=== PATIENT | male | born 1985 | race Caucasian/White ===

== ENCOUNTER 2016-05-04 12:30 | Emergency (ER) | payer OTHER ==
[~2016-05-04] VITALS: Ht 170.2 cm; Wt 108.9 kg
[~2016-05-04 12:30] MED LIST: ALBUTEROL INHAL17 GM IH; ALBUTEROL2.5 MG/31 INH; AMOXICILLIN875 MG PO; BACTRIM DS TAB1 EACH PO; CILOXAN5 ML OP; CIPRO HC OTIC S10 ML OT; CORTISPORIN OTI10 M2 OT; DOXYCYCLINE 10100 MG PO; IBUPROFEN 600600 M1; IBUPROFEN 600600 M1 PO; IBUPROFEN 800800 MG PO; KEFLEX500 MG PO; MEDROL DOSPAK21 TAB PO; NOHOMEMEDICATIONS; NORCO 5-325 TA1 EACH PO; NYQUIL D COLD295 ML; PATANOL5 ML OPHTHALMIC; PHARBETOL500 M1 PO; PHENERGAN-CODE120 ML PO; PREDNISONE 20 M20 M1 PO; PREDNISONE 20 M20 MG PO; PROAIR HFA8.5 GM IH; PROVENTIL HFA6.7 G1 INH; TESSALON PERLE100 MG PO; VENTOLIN HFA 1818 GM INH; VICODIN 5-5001 EACH PO; ZPAK PO
[2016-05-04] MEDS ORDERED: CARAFATE 1 GM TA1 G1 PO (13:33)
[2016-05-04] MEDS ORDERED: ZANTAC 150MG T150 MG PO (13:33)
[2016-05-04] MEDS ORDERED: ALBUTEROL2.5 MG/0.5 INH (13:33)
[2016-05-04 13:50] VITALS: BP 135/94
== END 2016-05-04 14:01 | disposition home or self-care (01) ==
LOC: ER 12:30
DX: J02.9 Acute pharyngitis, unspecified (principal); K21.9 Gastro-esophageal reflux disease without esophagitis; J45.909 Unspecified asthma, uncomplicated; F17.210 Nicotine dependence, cigarettes, uncomplicated; F32.9 Major depressive disorder, single episode, unspecified; F41.9 Anxiety disorder, unspecified; Z88.0 Allergy status to penicillin; Z88.1 Allergy status to other antibiotic agents

== ENCOUNTER 2016-09-10 23:10 | Emergency (ER) | payer OTHER ==
[~2016-09-10] VITALS: Ht 172.7 cm; Wt 117.9 kg
[~2016-09-10 23:10] MED LIST changes: +ALBUTEROL2.5 MG/0.5 INH; +CARAFATE 1 GM TA1 G1 PO; +ZANTAC 150MG T150 MG PO
[2016-09-10 23:12] VITALS: BP 151/107
[2016-09-10] MEDS ORDERED: VITAMINC500 PO (23:33)
[2016-09-10] MEDS ORDERED: MULTI VITAMIN1 EACH (23:34)
[2016-09-10] MEDS ORDERED: FISH OIL 1,001000 M2 PO (23:34)
[2016-09-10] MEDS ORDERED: AUGMENTIN 875875 MG PO (23:48)
[2016-09-10] MEDS ORDERED: FAMCYCLOVIR 50500 M1 PO (23:48)
== END 2016-09-11 00:26 | disposition home or self-care (01) ==
LOC: ER 23:10
DX: J06.9 Acute upper respiratory infection, unspecified (principal); H66.91 Otitis media, unspecified, right ear; Z76.0 Encounter for issue of repeat prescription; J45.909 Unspecified asthma, uncomplicated; F41.9 Anxiety disorder, unspecified; F32.9 Major depressive disorder, single episode, unspecified; Z88.1 Allergy status to other antibiotic agents; Z88.0 Allergy status to penicillin; F17.210 Nicotine dependence, cigarettes, uncomplicated

== ENCOUNTER 2017-07-16 19:30 | Emergency (ER) | payer OTHER ==
[~2017-07-16] VITALS: Ht 172.7 cm; Wt 99.8 kg
[~2017-07-16 19:30] MED LIST changes: +AUGMENTIN 875875 MG PO; +FAMCYCLOVIR 50500 M1 PO; +FISH OIL 1,001000 M2 PO; +MULTI VITAMIN1 EACH; +VITAMINC500 PO
[2017-07-16] MEDS ORDERED: PREDNISONE 20 M20 MG PO (21:20)
[2017-07-16] MEDS ORDERED: TESSALON PERLE100 MG PO (21:20)
[2017-07-16] MEDS ORDERED: PROVENTIL HFA6.7 G1 INH (21:20)
== END 2017-07-16 21:47 | disposition home or self-care (01) ==
LOC: ER 19:30
DX: J45.901 Unspecified asthma with (acute) exacerbation (principal); J06.9 Acute upper respiratory infection, unspecified; F41.9 Anxiety disorder, unspecified; F32.9 Major depressive disorder, single episode, unspecified; F17.210 Nicotine dependence, cigarettes, uncomplicated; Z88.8 Allergy status to other drugs, medicaments and biological substances; Z88.0 Allergy status to penicillin

== ENCOUNTER 2017-12-27 21:22 | Emergency (ER) | payer OTHER ==
[~2017-12-27] VITALS: Ht 172.7 cm; Wt 108.9 kg
[2017-12-27] MEDS ORDERED: ULTRAM 50MG TAB50 MG PO (22:09)
[2017-12-27] MEDS ORDERED: AMOXICILLIN500 M1 PO (22:09)
[2017-12-27 22:44] VITALS: BP 168/100
== END 2017-12-27 22:45 | disposition home or self-care (01) ==
LOC: ER 21:22
DX: K02.9 Dental caries, unspecified (principal); F17.210 Nicotine dependence, cigarettes, uncomplicated; J45.909 Unspecified asthma, uncomplicated; F32.9 Major depressive disorder, single episode, unspecified; F41.9 Anxiety disorder, unspecified; Z88.1 Allergy status to other antibiotic agents; Z88.0 Allergy status to penicillin

== ENCOUNTER 2018-08-05 20:20 | Emergency (ER) | payer BC ==
[~2018-08-05] VITALS: Ht 172.7 cm; Wt 108.9 kg
[~2018-08-05 20:20] MED LIST changes: +AMOXICILLIN500 M1 PO; +ULTRAM 50MG TAB50 MG PO
[2018-08-05] MEDS ORDERED: ALBUTEROL2.5 MG/31 INH (20:53)
[2018-08-05] MEDS ORDERED: AZITHROMYCIN 2250 MG PO (20:53)
[2018-08-05] MEDS ORDERED: VENTOLIN HFA 1818 GM INH (20:53)
[2018-08-05 21:30] VITALS: BP 123/77
== END 2018-08-05 21:46 | disposition home or self-care (01) ==
LOC: ER 20:20
DX: J45.909 Unspecified asthma, uncomplicated (principal); F17.210 Nicotine dependence, cigarettes, uncomplicated; F32.9 Major depressive disorder, single episode, unspecified; F41.9 Anxiety disorder, unspecified; Z88.0 Allergy status to penicillin; Z88.1 Allergy status to other antibiotic agents

== ENCOUNTER 2018-10-21 10:41 | Emergency (ER) | payer OTHER, BC ==
[~2018-10-21] VITALS: Ht 172.7 cm; Wt 108.9 kg
[~2018-10-21 10:41] MED LIST changes: +AZITHROMYCIN 2250 MG PO
[2018-10-21 10:42] VITALS: BP 129/86
[2018-10-21] MEDS ORDERED: BACTRIM DS TAB1 EACH PO (10:57)
== END 2018-10-21 11:00 | disposition home or self-care (01) ==
LOC: ER 10:41
DX: L03.032 Cellulitis of left toe (principal); J45.909 Unspecified asthma, uncomplicated; F32.9 Major depressive disorder, single episode, unspecified; F41.9 Anxiety disorder, unspecified; F17.210 Nicotine dependence, cigarettes, uncomplicated; Z88.0 Allergy status to penicillin; Z88.8 Allergy status to other drugs, medicaments and biological substances

== ENCOUNTER 2019-06-23 18:57 | Emergency (ER) | payer OTHER ==
[~2019-06-23] VITALS: Ht 165.1 cm; Wt 90.7 kg
[2019-06-23] MEDS ORDERED: ALBUTEROL2.5 MG/31 INH (20:20)
[2019-06-23] MEDS ORDERED: PROAIR HFA8.5 GM INH (20:20)
[2019-06-23] MEDS ORDERED: PREDNISONE50 MG PO (20:20)
[2019-06-23 20:38] VITALS: BP 175/106
== END 2019-06-23 20:40 | disposition home or self-care (01) ==
LOC: ER 18:57
DX: J45.901 Unspecified asthma with (acute) exacerbation (principal); R09.81 Nasal congestion; R05 Cough; F17.210 Nicotine dependence, cigarettes, uncomplicated; Z88.0 Allergy status to penicillin; Z88.8 Allergy status to other drugs, medicaments and biological substances